=== PATIENT | female | born 1995 | race Caucasian/White ===

== ENCOUNTER 2020-12-02 20:21 | Inpatient (IN) | payer SELFPAY ==
[2020-12-02] MEDS ORDERED: Lidocaine 1% 30 ML SDV INJECT PRN (21:36)
[2020-12-02] MEDS ORDERED: Carboprost Tromethamine 250 MCG/1 ML Amp IM PRN (21:36)
[2020-12-02] MEDS ORDERED: Lactated Ringers 1,000 ML IV ONE ×2 (21:36→22:30)
[2020-12-02] MEDS ORDERED: Ondansetron 4 MG/2 ML SDV IVPUSH PRN (21:36)
[2020-12-02] MEDS ORDERED: Sodium Chloride 0.9% 10 ML Syringe FLUSH PRN (21:36)
[2020-12-02] MEDS ORDERED: Tranexamic Acid 1,000 MG in Sodium Chloride 0.9% 100 ML IV PRN (21:36)
[2020-12-02] MEDS ORDERED: Misoprostol 400 MCG (4 X 100 MCG TAB) RECTAL PRN (21:36)
[2020-12-02] MEDS ORDERED: Methylergonovine 0.2 MG/1 ML Amp IM PRN (21:36)
[2020-12-02] MEDS ORDERED: Acetaminophen 325 MG Tab PO PRN (21:36)
[2020-12-02] MEDS ORDERED: Nalbuphine 10 MG/1 ML Vial IV PRN (21:39)
[2020-12-02] MEDS ORDERED: Nalbuphine 10 MG/1 ML Vial IM PRN (21:40)
[2020-12-02] MEDS ORDERED: Oxytocin/Normal Saline 30 UNIT/500 ML BAG IV SCH (21:45)
--- NOTE | 2020-12-02 21:55 | PCM.LDHP ---
L&D History of Present Illness - General Date of Service: 12/02/20 Admit Problem/Dx: Patient Status Order with Admit Dx/Problem 12/02/20 21:36 Patient Status [ADT] Routine Admission Diagnosis/Problem Admission Diagnosis/Problem care in third trimester Source of Information: Patient History Limitations: Reports: No Limitations - History of Present Illness Introduction:: Danielle Harris is a 25 year old female who presents for evaluation for contractions that began this AM. Patient reports contractions around 10AM. Clara morton was seen by her OB provider at 1615 at which time she was 1cm and high on cervical exam. Patient reports contractions became more frequent around 1800 and pain worsened around 1945. She describes contractions every 2-3 minutes with pain worse in the back. She denies leakage of fluid or vaginal bleeding. She is still perceiving movement, though she reports it is currently less than she normally perceives. Location, : Reports: Lower back Quality: Reports: Pressure Severity: Moderate Worsens with: Reports: None Associated Symptoms: Denies: vaginal bleeding, vaginal clots, vaginal fluid H&P Review of Systems - Review of Systems: Review Of Systems: Comprehensive ROS is negative, except as noted in HPI. General: Reports: No Symptoms HEENT: Reports: No Symptoms Pulmonary: Reports: No Symptoms Cardiovascular: Reports: No Symptoms Gastrointestinal: Reports: No Symptoms Genitourinary: Reports: No Symptoms Musculoskeletal: Reports: No Symptoms Skin: Reports: No Symptoms Psychiatric: Reports: No Symptoms Neurological: Reports: No Symptoms Hematologic/Lymphatic: Reports: No Symptoms Immunologic: Reports: No Symptoms L&D Exam - Exam Exam: See Below (Alert and oriented, cooperative, occasionally has to pause conversation for contractions) - Vital Signs Vital Signs: Last Vital Signs Temp 99.6 F 12/02/20 20:35 Pulse 62 12/02/20 20:35 Resp 16 12/02/20 20:35 BP 135/85 12/02/20 20:35 Pulse Ox - OB Specific Contraction Intensity: Mild to Moderate Movement: Active Heart Tones: Present Heart Rate (FHR) Variability: Moderate (6-25 bpm) - Patterson Score Patterson Score Cervix Position: Midposition Patterson Score Consistency: Medium Patterson Score Effacement: >80% Patterson Score Dilation: 3-4 cm Patterson Score Infant's Station: -2 Patterson Score Total: 8 - Exam General: Alert, Oriented, Cooperative HEENT: Conjunctiva Clear, EOMI, Mucosa Moist & [place] Neck: Supple, Trachea Midline Lungs: Clear to Auscultation, Normal Respiratory Effort Cardiovascular: Regular Rate, Regular Rhythm, Normal S1, Normal S2 GI/Abdominal Exam: Normal Bowel Sounds, Soft, Non-Tender Rectal Exam: Normal Exam, Normal Rectal Tone Genitourinary: Normal external exam, Normal bimanual exam, Normal speculum exam Back Exam: Normal Inspection (see above), Full Range of Motion Extremities: Normal Inspection, Normal Range of Motion Skin: Warm, Dry, Intact Neurological: Cranial Nerves Intact, Reflexes Equal Bilateral Psychiatric: Alert, Normal Affect, Normal Mood - Patient Data Result Diagrams: 12/02/20 21:20 - Problem List (1) Active labor at term SNOMED Code(s): 02670599 ICD Code: [id number] - Status: Acute Current Visit: Yes Onset Date: ~12/02/20 Problem Details: -GBS negative status; antibiotics not indicated -Pain control with: nalbuphine, intrathecal if desired, IV medications, nitrous oxide -Oxytocin when indicated -AROM when able -Expect vaginal delivery (2) Anemia affecting , antepartum SNOMED Code(s): 462797192 ICD Code: O99.019 - ANEMIA COMPLICATING , UNSPECIFIED TRIMESTER Status: Acute Current Visit: Yes Problem Details: On oral ferrous sulfate supplementation. Problem List Initiated/Reviewed/Updated: Yes Orders Last 24hrs: Active Orders 24 hr Category Date Time Status Patient Status [ADT] Routine ADT 12/02/20 21:36 Ordered Communication Order [RC] ASDIRECTED Care 12/02/20 21:36 Ordered Heart Tones [RC] PER UNIT ROUTINE Care 12/02/20 21:36 Ordered Nitrous Oxide Delivery [RC] ASDIRECTED Care 12/02/20 21:40 Ordered Notify Provider Vital Signs OB [RC] ASDIRECTED Care 12/02/20 21:36 Ordered Notify Provider [RC] PRN Care 12/02/20 21:36 Ordered OB Check [OM.PC] Click to Edit Care 12/02/20 20:27 Ordered OB Discontinue Nitrous Oxide [RC] ASDIRECTED Care 12/02/20 21:40 Ordered Pump Management, Intrathecal [RC] ASDIRECTED Care 12/02/20 21:36 Ordered Up ad Karen [RC] ASDIRECTED Care 12/02/20 21:36 Ordered Vital Signs [RC] PER UNIT ROUTINE Care 12/02/20 21:36 Ordered Regular Diet [DIET] Diet 12/02/20 Dinner Ordered CBC W/O DIFF,HEMOGRAM [HEME] Routine Lab 12/02/20 21:36 Ordered CORONAVIRUS COVID-19 CLEMENTE [MOLEC] Stat Lab 12/02/20 21:05 Received CORONAVIRUS COVID-19 CLEMENTE [MOLEC] Stat Lab 12/02/20 21:36 Ordered Acetaminophen [TylenoL] Med 12/02/20 21:36 Ordered 650 mg PO Q4H PRN Carboprost Tromethamine [Hemabate DS] Med 12/02/20 21:36 Ordered 250 mcg IM ASDIRECTED PRN Lactated Ringers @ 125 MLS/HR(1000ml) Med 12/02/20 21:45 Ordered Lactated Ringers [Ringers, Lactated] 1,000 ml IV ASDIRECTED Lactated Ringers [Ringers, Lactated] 1,000 ml Med 12/02/20 21:36 Ordered IV BOLUS Lidocaine 1% [Xylocaine-MPF 1%] Med 12/02/20 21:36 Ordered 30 ml INJECT ASDIRECTED PRN Methylergonovine [Methergine] Med 12/02/20 21:36 Ordered 0.2 mg IM ASDIRECTED PRN Nalbuphine [Nubain] Med 12/02/20 21:40 Ordered 10 mg IM Q3H PRN Nalbuphine [Nubain] Med 12/02/20 21:39 Ordered 10 mg IV Q3H PRN Ondansetron [Zofran] Med 12/02/20 21:36 Ordered 4 mg IVPUSH Q4H PRN Oxytocin 30 Units in NS @ 2 MUNITS/MIN(500ml) Med 12/02/20 21:45 Ordered Oxytocin/Normal Saline [Pitocin in NS 30 UNIT/500 ML] 30 unit in 500 ml IV TITRATE Sodium Chloride 0.9% [Saline Flush] Med 12/02/20 21:36 Ordered 10 ml FLUSH ASDIRECTED PRN Tranexamic Acid [Cyklokapron] 1,000 mg Med 12/02/20 21:36 Ordered Sodium Chloride 0.9% [Normal Saline] 100 ml IV ONETIME miSOPROStoL [Cytotec] Med 12/02/20 21:36 Ordered 800 mcg RECTAL ASDIRECTED PRN Saline Lock Insert [OM.PC] Routine Oth 12/02/20 21:36 Ordered Resuscitation Status Routine Resus Stat 12/02/20 21:36 Ordered Medication Orders Acetaminophen (Acetaminophen 325 Mg Tab) 650 mg PO Q4H PRN PRN Reason: Pain (Mild 1-3) and fever Carboprost Tromethamine (Carboprost Tromethamine 250 Mcg/1 Ml Amp) 250 mcg IM ASDIRECTED PRN PRN Reason: HEMORRHAGE Lactated Ringer's (Ringers, Lactated) 1,000 mls @ 999 mls/hr IV BOLUS ONE Stop: 12/02/20 22:36 Lactated Ringer's (Ringers, Lactated) 1,000 mls @ 125 mls/hr IV ASDIRECTED DEYA Tranexamic Acid 1,000 mg/ (Sodium Chloride) 110 mls @ 660 mls/hr IV ONETIME PRN PRN Reason: Bleeding Oxytocin/Sodium Chloride (Pitocin In Ns 30 Unit/500 Ml) 30 unit in 500 mls @ 2 mls/hr IV TITRATE DEYA; Protocol Lidocaine HCl (Lidocaine 1% 30 Ml Sdv) 30 ml INJECT ASDIRECTED PRN PRN Reason: Perineal Repair Methylergonovine Maleate (Methylergonovine 0.2 Mg/1 Ml Amp) 0.2 mg IM ASDIRECTED PRN PRN Reason: Hemorrhage Misoprostol (Misoprostol 400 Mcg (4 X 100 Mcg Tab)) 800 mcg RECTAL ASDIRECTED PRN PRN Reason: Hemorrhage Nalbuphine HCl (Nalbuphine 10 Mg/1 Ml Vial) 10 mg IV Q3H PRN PRN Reason: Pain Nalbuphine HCl (Nalbuphine 10 Mg/1 Ml Vial) 10 mg IM Q3H PRN PRN Reason: Pain Ondansetron HCl (Ondansetron 4 Mg/2 Ml Sdv) 4 mg IVPUSH Q4H PRN PRN Reason: Nausea/Vomiting Sodium Chloride (Sodium Chloride 0.9% 10 Ml Syringe) 10 ml FLUSH ASDIRECTED PRN PRN Reason: Keep Vein Open
[2020-12-02] MEDS: Lactated Ringers 1,000 ML IV SCH (23:10)
[2020-12-02] MEDS ORDERED: Sodium Bicarbonate 4.2% 2.5 MEQ/5 ML SDV ONE (23:44)
[2020-12-02] MEDS ORDERED: EPINEPHrine 1 MG/ML SDV ONE (23:44)
[2020-12-02] MEDS ORDERED: fentaNYL 100 MCG/2 ML SDV ONE (23:44)
--- NOTE | 2020-12-03 00:09 | PCM.SN.2 ---
- Free Text/Narrative Note: Intrathecal. Sitting position, sterile prep and drape. 1% lidocaine w bicarb for skinwheal to L2 L3 interspace, introducer, 24 ga Pencan x 1. Pos CSF neg heme, neg parasthesia. 0.1 ml 1:1000 pf Epi, 20 mcg pf Sufenta, 30 mcg pf Fentanyl, 0.4 ml pf NS and 6 mg of 0.75% pf Marcaine injected after CSF aspiration. Pt to L lateral position. Procedure time 2340 to 0015 Time Documentation
[2020-12-03] MEDS: Lactated Ringers 1,000 ML IV SCH ×2 (00:10→04:15)
[2020-12-03] MEDS ORDERED: Oxytocin/Normal Saline 30 UNIT/500 ML BAG IV SCH (00:45)
[2020-12-03] MEDS ORDERED: EPINEPHrine 1 MG/ML SDV ONE (03:48)
[2020-12-03] MEDS ORDERED: Sodium Bicarbonate 4.2% 2.5 MEQ/5 ML SDV ONE (03:48)
[2020-12-03] MEDS ORDERED: fentaNYL 100 MCG/2 ML SDV ONE (03:48)
--- NOTE | 2020-12-03 04:08 | PCM.SN.2 ---
- Free Text/Narrative Note: Intrathecal. Sitting position, sterile prep and drape. 1% lidocaine w bicarb for skinwheal to L2 L3 interspace, introducer, 24 ga Pencan x 1. Pos CSF neg heme, neg parasthesia. 0.1 ml 1:1000 pf Epi, 20 mcg pf Sufenta, 30 mcg pf Fentanyl, 0.4 ml pf NS and 6 mg of 0.75% pf Marcaine injected after CSF aspiration. Pt to L lateral position. Procedure time 0350 to 0420 Time Documentation
[2020-12-03] MEDS ORDERED: Ibuprofen 800 MG Tab PO PRN (13:45)
[2020-12-03] MEDS ORDERED: Acetaminophen 325 MG Tab PO PRN (15:46)
[2020-12-03] MEDS ORDERED: Tranexamic Acid 1,000 MG in Sodium Chloride 0.9% 100 ML IV PRN (15:46)
[2020-12-03] MEDS ORDERED: Oxytocin 10 Units/1 ML SDV IM PRN (15:46)
[2020-12-03] MEDS ORDERED: Simethicone 80 MG Tab.Chew PO PRN (15:46)
[2020-12-03] MEDS ORDERED: Benzocaine/Menthol 20%-0.5% Spray 78 GM Cannister TOP PRN (15:46)
[2020-12-03] MEDS ORDERED: Sodium Chloride 0.9% 10 ML Syringe FLUSH PRN (15:46)
[2020-12-03] MEDS ORDERED: Carboprost Tromethamine 250 MCG/1 ML Amp IM PRN (15:46)
[2020-12-03] MEDS ORDERED: Misoprostol 400 MCG (4 X 100 MCG TAB) RECTAL PRN (15:46)
[2020-12-03] MEDS ORDERED: diphenhydrAMINE 25 MG Tab PO PRN (16:13)
[2020-12-03] MEDS: Docusate Sodium 100 MG Cap PO PRN (22:11)
[2020-12-03] MEDS: Ibuprofen 800 MG Tab PO PRN (22:12)
[2020-12-04] MEDS: Ibuprofen 800 MG Tab PO PRN ×2 (06:23→16:13)
[2020-12-04] MEDS: Docusate Sodium 100 MG Cap PO PRN (09:42)
--- NOTE | 2020-12-04 11:04 | PCM.PNPP ---
- General Info Date of Service: 12/04/20 Admission Dx/Problem (Free Text): Status Post Vacuum assisted Vaginal Delivery with repaired 2nd degree perineal lac and episiotomy. Subjective Update: Danielle reports no acute overnight events. Pain well controlled. Functional Status: Reports: Tolerating Diet, Ambulating, Urinating - Review of Systems General: Reports: No Symptoms HEENT: Reports: No Symptoms Pulmonary: Reports: No Symptoms Cardiovascular: Reports: No Symptoms Gastrointestinal: Reports: No Symptoms Genitourinary: Reports: Pain (perineal) Musculoskeletal: Reports: No Symptoms Skin: Reports: No Symptoms Neurological: Reports: No Symptoms Psychiatric: Reports: No Symptoms - General Info Date of Service: 12/04/20 - Patient Data Vital Signs - Most Recent: Last Vital Signs Temp 97.6 F 12/04/20 08:00 Pulse 76 12/04/20 08:00 Resp 16 12/04/20 08:00 BP 129/80 12/04/20 08:00 Pulse Ox 95 12/04/20 08:00 Weight - Most Recent: 180 lb I&O - Last 24 Hours: Intake & Output 12/03/20 12/04/20 12/04/20 22:59 06:59 14:59 Intake Total 2150 700 Balance 2150 700 Med Orders - Current: Current Medications Acetaminophen (Acetaminophen 325 Mg Tab) 650 mg PO Q6H PRN PRN Reason: Pain/Fever Benzocaine/Menthol (Benzocaine/Menthol 20%-0.5% [place] 78 Gm Cannister) 0 gm TOP Q4H PRN PRN Reason: Perineal comfort measures Carboprost Tromethamine (Carboprost Tromethamine 250 Mcg/1 Ml Amp) 250 mcg IM ASDIRECTED PRN PRN Reason: Excessive vaginal bleeding Diphenhydramine HCl (Diphenhydramine 25 Mg Tab) 25 mg PO BEDTIME PRN PRN Reason: Other Last Admin: 12/03/20 22:12 Dose: 25 mg Documented by: Docusate Sodium (Docusate Sodium 100 Mg Cap) 100 mg PO BID PRN PRN Reason: Constipation Last Admin: 12/04/20 09:42 Dose: 100 mg Documented by: Tranexamic Acid 1,000 mg/ (Sodium Chloride) 110 mls @ 660 mls/hr IV ONETIME PRN PRN Reason: Bleeding Ibuprofen (Ibuprofen 800 Mg Tab) 800 mg PO Q8H PRN PRN Reason: Cramping Last Admin: 12/04/20 06:23 Dose: 800 mg Documented by: Misoprostol (Misoprostol 400 Mcg (4 X 100 Mcg Tab)) 800 mcg RECTAL ONETIME PRN PRN Reason: Hemorrhage Oxytocin (Oxytocin 10 Units/1 Ml Sdv) 10 unit IM ONETIME PRN PRN Reason: Bleeding Simethicone (Simethicone 80 Mg Tab.Chew) 80 mg PO Q4H PRN PRN Reason: Gas Sodium Chloride (Sodium Chloride 0.9% 10 Ml Syringe) 10 ml FLUSH ASDIRECTED PRN PRN Reason: Keep Vein Open Discontinued Medications Acetaminophen (Acetaminophen 325 Mg Tab) 650 mg PO Q4H PRN PRN Reason: Pain (Mild 1-3) and fever Carboprost Tromethamine (Carboprost Tromethamine 250 Mcg/1 Ml Amp) 250 mcg IM ASDIRECTED PRN PRN Reason: HEMORRHAGE Epinephrine HCl (Epinephrine 1 Mg/Ml Sdv) Confirm Administered Dose 1 mg .ROUTE .STK-MED ONE Stop: 12/02/20 23:45 Last Admin: 12/03/20 06:10 Dose: Not Given Documented by: Epinephrine HCl (Epinephrine 1 Mg/Ml Sdv) Confirm Administered Dose 1 mg .ROUTE .STK-MED ONE Stop: 12/03/20 03:49 Last Admin: 12/03/20 06:10 Dose: Not Given Documented by: Fentanyl (Fentanyl 100 Mcg/2 Ml Sdv) Confirm Administered Dose 100 mcg .ROUTE .STK-MED ONE Stop: 12/02/20 23:45 Last Admin: 12/03/20 06:10 Dose: Not Given Documented by: Fentanyl (Fentanyl 100 Mcg/2 Ml Sdv) Confirm Administered Dose 100 mcg .ROUTE .STK-MED ONE Stop: 12/03/20 03:49 Last Admin: 12/03/20 06:10 Dose: Not Given Documented by: Lactated Ringer's (Ringers, Lactated) 1,000 mls @ 999 mls/hr IV BOLUS ONE Stop: 12/02/20 22:36 Last Admin: 12/03/20 03:49 Dose: 999 mls/hr Documented by: Lactated Ringer's (Ringers, Lactated) 1,000 mls @ 125 mls/hr IV ASDIRECTED DEYA Last Admin: 12/03/20 04:15 Dose: 125 mls/hr Documented by: Tranexamic Acid 1,000 mg/ (Sodium Chloride) 110 mls @ 660 mls/hr IV ONETIME PRN PRN Reason: Bleeding Oxytocin/Sodium Chloride (Pitocin In Ns 30 Unit/500 Ml) 30 unit in 500 mls @ 2 mls/hr IV TITRATE DEYA; Protocol Lactated Ringer's (Ringers, Lactated) 1,000 mls @ 1,000 mls/hr IV ONETIME ONE Stop: 12/02/20 23:29 Last Admin: 12/03/20 06:10 Dose: Not Given Documented by: Oxytocin/Sodium Chloride (Pitocin In Ns 30 Unit/500 Ml) 30 unit in 500 mls @ 2 mls/hr IV TITRATE DEYA; Protocol Last Titration: 12/03/20 10:55 Dose: Infused Documented by: Ibuprofen (Ibuprofen 800 Mg Tab) 800 mg PO Q8H PRN PRN Reason: Cramping Last Admin: 12/03/20 14:35 Dose: 800 mg Documented by: Lidocaine HCl (Lidocaine 1% 30 Ml Sdv) 30 ml INJECT ASDIRECTED PRN PRN Reason: Perineal Repair Methylergonovine Maleate (Methylergonovine 0.2 Mg/1 Ml Amp) 0.2 mg IM ASDIRECTED PRN PRN Reason: Hemorrhage Misoprostol (Misoprostol 400 Mcg (4 X 100 Mcg Tab)) 800 mcg RECTAL ASDIRECTED PRN PRN Reason: Hemorrhage Nalbuphine HCl (Nalbuphine 10 Mg/1 Ml Vial) 10 mg IV Q3H PRN PRN Reason: Pain Nalbuphine HCl (Nalbuphine 10 Mg/1 Ml Vial) 10 mg IM Q3H PRN PRN Reason: Pain Last Admin: 12/02/20 23:05 Dose: 10 mg Documented by: Ondansetron HCl (Ondansetron 4 Mg/2 Ml Sdv) 4 mg IVPUSH Q4H PRN PRN Reason: Nausea/Vomiting Last Admin: 12/02/20 23:39 Dose: 4 mg Documented by: Sodium Bicarbonate (Sodium Bicarbonate 4.2% 2.5 Meq/5 Ml Sdv) Confirm Administered Dose 2.5 meq .ROUTE .STK-MED ONE Stop: 12/02/20 23:45 Last Admin: 12/03/20 06:10 Dose: Not Given Documented by: Sodium Bicarbonate (Sodium Bicarbonate 4.2% 2.5 Meq/5 Ml Sdv) Confirm Administered Dose 2.5 meq .ROUTE .STK-MED ONE Stop: 12/03/20 03:49 Last Admin: 12/03/20 06:10 Dose: Not Given Documented by: Sodium Chloride (Sodium Chloride 0.9% 10 Ml Syringe) 10 ml FLUSH ASDIRECTED PRN PRN Reason: Keep Vein Open Sufentanil Citrate (Sufentanil 50 Mcg/1 Ml Amp) Confirm Administered Dose 50 mcg .ROUTE .STK-MED ONE Stop: 12/02/20 23:45 Last Admin: 12/03/20 06:10 Dose: Not Given Documented by: Sufentanil Citrate (Sufentanil 50 Mcg/1 Ml Amp) Confirm Administered Dose 50 mcg .ROUTE .STK-MED ONE Stop: 12/03/20 03:49 Last Admin: 12/03/20 06:10 Dose: Not Given Documented by: - Interaction Infant Disposition, : [place] in Room with Family Infant Interaction: Holding Infant Feeding: Breastfed ; Nursed Well, Difficulty with Latch-on (Flat nipples, using nipple shield. Supplementing with formula via tube.) Support Person: - Recovery Exam Fundal Tone: Firm Fundal Level: 2 Fingerbreadths Below Umbilicus Fundal Placement: Midline Lochia Amount: Small Lochia Color: Rubra/Red Perineum Description: Edematous Other Perinuem Description: improving Episiotomy/Laceration: Approximated Bladder Status: Voiding Urinary Elimination: Voided Other Urinary Elimination, : 400mls - Exam General: Alert, Oriented HEENT: Pupils Equal Neck: Supple Lungs: Clear to Auscultation, Normal Respiratory Effort Cardiovascular: Regular Rate, Regular Rhythm GI/Abdominal Exam: Normal Bowel Sounds, Soft, Non-Tender, No Organomegaly, No Distention, No Abnormal Bruit, No Mass, Pelvis Stable Extremities: Normal Inspection, Normal Range of Motion, Non-Tender, No Pedal Edema, Normal Capillary Refill Skin: Warm, Dry, Intact Wound/Incisions: Healing Well Neurological: No New Focal Deficit Psy/Mental Status: Alert, Normal Affect, Normal Mood - Problem List & Annotations (1) Vacuum-assisted vaginal delivery SNOMED Code(s): 30354748194633849 Code(s): Z37.9 - OUTCOME OF DELIVERY, UNSPECIFIED Status: Acute Current Visit: Yes (2) Second-degree perineal laceration, SNOMED Code(s): 571941707 Code(s): O70.1 - SECOND DEGREE PERINEAL LACERATION DURING DELIVERY Status: Acute Current Visit: Yes Annotation/Comment:: repaired with 3-0 vicryl. hemostasis confirmed. - Problem List Review Problem List Initiated/Reviewed/Updated: Yes - My Orders Last 24 Hours: My Active Orders 12/03/20 15:46 Up ad Karen [RC] ASDIRECTED Acetaminophen [TylenoL] 650 mg PO Q6H PRN Benzocaine/Menthol [Dermoplast Pain Relief 20%-0.5% [place]] See Dose Instructions TOP Q4H PRN Carboprost Tromethamine [Hemabate DS] 250 mcg IM ASDIRECTED PRN Docusate Sodium [Colace] 100 mg PO BID PRN Ibuprofen [Motrin] 800 mg PO Q8H PRN Oxytocin [Pitocin] 10 unit IM ONETIME PRN Simethicone 80 mg PO Q4H PRN Sodium Chloride 0.9% [Saline Flush] 10 ml FLUSH ASDIRECTED PRN Tranexamic Acid [Cyklokapron] 1,000 mg Sodium Chloride 0.9% [Normal Saline] 100 ml IV ONETIME miSOPROStoL [Cytotec] 800 mcg RECTAL ONETIME PRN Assess Lochia [WOMSER] Per Unit Routine Assess Uterine Involution [WOMSER] Per Unit Routine Breast Pump [WOMSER] Per Unit Routine Ice Therapy [OM.PC] Per Unit Routine Perineal Care [OM.PC] Per Unit Routine Saline Lock Insert [OM.PC] Urgent Sitz Bath [OM.PC] Per Unit Routine Resuscitation Status Routine 12/03/20 15:47 Patient Status [ADT] Routine Notify Provider Vital Signs OB [RC] ASDIRECTED 12/03/20 15:49 Vital Signs [RC] 12/03/20 16:13 diphenhydrAMINE [Benadryl] 25 mg PO BEDTIME PRN 12/03/20 Dinner Regular Diet [DIET] - Assessment Assessment:: 1. s/p vacuum assisted vaginal delivery 2. 2nd degree perineal laceration, repaired - Plan Plan:: Continue routine cares. Aline provided for perineal edema.
--- NOTE | 2020-12-05 09:20 | PCM.DCSUM1 ---
Discharge Summary - Hospital Course HPI Initial Comments: Danielle Harris is a 25yo G1 now P1 who was admitted to L&D on 12/02/2020 at Gestational age 39 weeks 1/7days for the successful labor & vacuum assisted vaginal delivery of a vigorous male at 0753 on 12/03/2020. Danielle's excellent care was supervised by Dr. Purvis. was only complicated by generalized anxiety and mild anemia - for which she took Zoloft 25mg and an additional Iron & Vitamin C supplement in conjunction with a daily vitamin. Delivery was complicated by presentation in OP position, 2nd degree perineal laceration, and episiotomy. EBL of ~300 CCs. Danielle is using a nipple shield and supplements with formula via feeding tube at the breast. Wing Mejía had scores of 7 and 9. Due to Left congenital inguinal hernia the 's circumcision will be performed after evaluation of hernia by pediatric general surgeon. Brief History: labs negative for infectious diseases including GBS, Gonorrhea, Chlamydia, Syphillis, Hep C, HIV. Hep B nonimmune. Rubella immune. Hgb on admission 13.0, plt 241 - Discharge Data Discharge Date: 12/05/20 Discharge Disposition: Home, Self-Care 01 Condition: Good - Referral to Home Health Primary Care Physician: Shahla Purvis MD - Discharge Diagnosis/Problem(s) (1) Vacuum-assisted vaginal delivery SNOMED Code(s): 48330521602587442 ICD Code: Z37.9 - OUTCOME OF DELIVERY, UNSPECIFIED Status: Acute Current Visit: Yes (2) Second-degree perineal laceration, SNOMED Code(s): 960229176 ICD Code: O70.1 - SECOND DEGREE PERINEAL LACERATION DURING DELIVERY Status: Acute Current Visit: Yes Problem Details: repaired with 3-0 vicryl. hemostasis confirmed. - Patient Instructions Diet: Regular Diet as Tolerated Activity: As Tolerated Notify Provider of: Fever, Increased Pain, Nausea and/or Vomiting - Discharge Plan *PRESCRIPTION DRUG MONITORING PROGRAM REVIEWED*: Not Applicable *COPY OF PRESCRIPTION DRUG MONITORING REPORT IN PATIENT BETTY: Not Applicable Home Medications: Home Meds Pnv No.95/Ferrous Fum/Folic AC [ Tablet] 1 tab PO DAILY 12/03/20 [History] Patient Handouts: Baby Blues, Episiotomy, Care After, Care After Vaginal Delivery - Discharge Summary/Plan Comment DC Time >30 min.: No Total # of Minutes for Discharge Time: 25 - General Info Date of Service: 12/05/20 Admission Dx/Problem (Free Text: Status Post Vacuum assisted Vaginal Delivery with repaired 2nd degree perineal lac and episiotomy. Subjective Update: Danielle reports no acute overnight events. Pain well controlled. Urinating, passing flatus & has had a bowel movement. Endorses mild sinus congestion, rhinorrhea, and headache that improve with tylenol. No fevers, chills, SOB, CP, vision changes. - Review of Systems Systems Review Comment: Comprehensive ROS negative except as noted above. - Patient Data Vitals - Most Recent: Last Vital Signs Temp 98.3 F 12/05/20 08:00 Pulse 86 12/05/20 08:00 Resp 18 12/05/20 08:00 BP 124/68 12/05/20 08:00 Pulse Ox 95 12/04/20 08:00 Weight - Most Recent: 180 lb Med Orders - Current: Current Medications Acetaminophen (Acetaminophen 325 Mg Tab) 650 mg PO Q6H PRN PRN Reason: Pain/Fever Benzocaine/Menthol (Benzocaine/Menthol 20%-0.5% [place] 78 Gm Cannister) 0 gm TOP Q4H PRN PRN Reason: Perineal comfort measures Carboprost Tromethamine (Carboprost Tromethamine 250 Mcg/1 Ml Amp) 250 mcg IM ASDIRECTED PRN PRN Reason: Excessive vaginal bleeding Diphenhydramine HCl (Diphenhydramine 25 Mg Tab) 25 mg PO BEDTIME PRN PRN Reason: Other Last Admin: 12/03/20 22:12 Dose: 25 mg Documented by: Docusate Sodium (Docusate Sodium 100 Mg Cap) 100 mg PO BID PRN PRN Reason: Constipation Last Admin: 12/04/20 09:42 Dose: 100 mg Documented by: Tranexamic Acid 1,000 mg/ (Sodium Chloride) 110 mls @ 660 mls/hr IV ONETIME PRN PRN Reason: Bleeding Ibuprofen (Ibuprofen 800 Mg Tab) 800 mg PO Q8H PRN PRN Reason: Cramping Last Admin: 12/04/20 16:13 Dose: 800 mg Documented by: Misoprostol (Misoprostol 400 Mcg (4 X 100 Mcg Tab)) 800 mcg RECTAL ONETIME PRN PRN Reason: Hemorrhage Oxytocin (Oxytocin 10 Units/1 Ml Sdv) 10 unit IM ONETIME PRN PRN Reason: Bleeding Simethicone (Simethicone 80 Mg Tab.Chew) 80 mg PO Q4H PRN PRN Reason: Gas Sodium Chloride (Sodium Chloride 0.9% 10 Ml Syringe) 10 ml FLUSH ASDIRECTED PRN PRN Reason: Keep Vein Open Discontinued Medications Acetaminophen (Acetaminophen 325 Mg Tab) 650 mg PO Q4H PRN PRN Reason: Pain (Mild 1-3) and fever Carboprost Tromethamine (Carboprost Tromethamine 250 Mcg/1 Ml Amp) 250 mcg IM ASDIRECTED PRN PRN Reason: HEMORRHAGE Epinephrine HCl (Epinephrine 1 Mg/Ml Sdv) Confirm Administered Dose 1 mg .ROUTE .STK-MED ONE Stop: 12/02/20 23:45 Last Admin: 12/03/20 06:10 Dose: Not Given Documented by: Epinephrine HCl (Epinephrine 1 Mg/Ml Sdv) Confirm Administered Dose 1 mg .ROUTE .STK-MED ONE Stop: 12/03/20 03:49 Last Admin: 12/03/20 06:10 Dose: Not Given Documented by: Fentanyl (Fentanyl 100 Mcg/2 Ml Sdv) Confirm Administered Dose 100 mcg .ROUTE .STK-MED ONE Stop: 12/02/20 23:45 Last Admin: 12/03/20 06:10 Dose: Not Given Documented by: Fentanyl (Fentanyl 100 Mcg/2 Ml Sdv) Confirm Administered Dose 100 mcg .ROUTE .STK-MED ONE Stop: 12/03/20 03:49 Last Admin: 12/03/20 06:10 Dose: Not Given Documented by: Lactated Ringer's (Ringers, Lactated) 1,000 mls @ 999 mls/hr IV BOLUS ONE Stop: 12/02/20 22:36 Last Admin: 12/03/20 03:49 Dose: 999 mls/hr Documented by: Lactated Ringer's (Ringers, Lactated) 1,000 mls @ 125 mls/hr IV ASDIRECTED DEYA Last Admin: 12/03/20 04:15 Dose: 125 mls/hr Documented by: Tranexamic Acid 1,000 mg/ (Sodium Chloride) 110 mls @ 660 mls/hr IV ONETIME PRN PRN Reason: Bleeding Oxytocin/Sodium Chloride (Pitocin In Ns 30 Unit/500 Ml) 30 unit in 500 mls @ 2 mls/hr IV TITRATE DEYA; Protocol Lactated Ringer's (Ringers, Lactated) 1,000 mls @ 1,000 mls/hr IV ONETIME ONE Stop: 12/02/20 23:29 Last Admin: 12/03/20 06:10 Dose: Not Given Documented by: Oxytocin/Sodium Chloride (Pitocin In Ns 30 Unit/500 Ml) 30 unit in 500 mls @ 2 mls/hr IV TITRATE DEYA; Protocol Last Titration: 12/03/20 10:55 Dose: Infused Documented by: Ibuprofen (Ibuprofen 800 Mg Tab) 800 mg PO Q8H PRN PRN Reason: Cramping Last Admin: 12/03/20 14:35 Dose: 800 mg Documented by: Lidocaine HCl (Lidocaine 1% 30 Ml Sdv) 30 ml INJECT ASDIRECTED PRN PRN Reason: Perineal Repair Methylergonovine Maleate (Methylergonovine 0.2 Mg/1 Ml Amp) 0.2 mg IM ASDIRECTED PRN PRN Reason: Hemorrhage Misoprostol (Misoprostol 400 Mcg (4 X 100 Mcg Tab)) 800 mcg RECTAL ASDIRECTED PRN PRN Reason: Hemorrhage Nalbuphine HCl (Nalbuphine 10 Mg/1 Ml Vial) 10 mg IV Q3H PRN PRN Reason: Pain Nalbuphine HCl (Nalbuphine 10 Mg/1 Ml Vial) 10 mg IM Q3H PRN PRN Reason: Pain Last Admin: 12/02/20 23:05 Dose: 10 mg Documented by: Ondansetron HCl (Ondansetron 4 Mg/2 Ml Sdv) 4 mg IVPUSH Q4H PRN PRN Reason: Nausea/Vomiting Last Admin: 12/02/20 23:39 Dose: 4 mg Documented by: Sodium Bicarbonate (Sodium Bicarbonate 4.2% 2.5 Meq/5 Ml Sdv) Confirm Administered Dose 2.5 meq .ROUTE .STK-MED ONE Stop: 12/02/20 23:45 Last Admin: 12/03/20 06:10 Dose: Not Given Documented by: Sodium Bicarbonate (Sodium Bicarbonate 4.2% 2.5 Meq/5 Ml Sdv) Confirm Administered Dose 2.5 meq .ROUTE .STK-MED ONE Stop: 12/03/20 03:49 Last Admin: 12/03/20 06:10 Dose: Not Given Documented by: Sodium Chloride (Sodium Chloride 0.9% 10 Ml Syringe) 10 ml FLUSH ASDIRECTED PRN PRN Reason: Keep Vein Open Sufentanil Citrate (Sufentanil 50 Mcg/1 Ml Amp) Confirm Administered Dose 50 mcg .ROUTE .STK-MED ONE Stop: 12/02/20 23:45 Last Admin: 12/03/20 06:10 Dose: Not Given Documented by: Sufentanil Citrate (Sufentanil 50 Mcg/1 Ml Amp) Confirm Administered Dose 50 mcg .ROUTE .[place].ru-MED ONE Stop: 12/03/20 03:49 Last Admin: 12/03/20 06:10 Dose: Not Given Documented by: - Exam General: Reports: Alert, Oriented HEENT: Reports: Pupils Equal, Pupils Reactive, EOMI, Mucous Membr. Moist/[place] Neck: Reports: Supple Lungs: Reports: Clear to Auscultation, Normal Respiratory Effort Cardiovascular: Reports: Regular Rate, Regular Rhythm GI/Abdominal Exam: Normal Bowel Sounds, Soft, Non-Tender, No Organomegaly, No Distention, No Abnormal Bruit, No Mass, Pelvis Stable (Female) Exam: Fundal Height (3 fingerwidths below umbillicus & firm), Vaginal Bleeding, Vaginal Tears Rectal (Female) Exam: Deferred Back Exam: Reports: Normal Inspection, Full Range of Motion Extremities: Normal Inspection, Normal Range of Motion, Non-Tender, No Pedal Edema, Normal Capillary Refill Skin: Reports: Warm, Dry, Intact Wound/Incisions: Reports: Healing Well Neurological: Reports: No New Focal Deficit Psy/Mental Status: Reports: Alert, Normal Affect, Normal Mood Discharge Operative/Procedures - Procedures Performed Operations: Vacuum-assisted vaginal delivery Operations/Procedure Comment: Normal Labor, pitocin augmentation, intrathecal analgesia provided, fetus presented in OP, 2nd degree perineal laceration and episiotomy repaired.
[2020-12-05] MEDS ORDERED: EPINEPHrine 1 MG/ML SDV ONE (13:59)
[2020-12-05] MEDS ORDERED: Sodium Bicarbonate 4.2% 2.5 MEQ/5 ML SDV ONE (13:59)
[2020-12-05] MEDS ORDERED: fentaNYL 100 MCG/2 ML SDV ITHECAL ONE (13:59)
[2020-12-05] MEDS ORDERED: Sodium Chloride 0.9% 20 ML SDV ONE (13:59)
== END 2020-12-05 15:30 | disposition home or self-care (01) | DRG 807 ==
LOC: DL.OBCHECK 20:21 → DL.OB 21:36
PROVIDERS: ADMIT Family Medicine; ATTEND Family Medicine
PROC: 10D07Z6 Extraction of Products of Conception, Vacuum, Via Natural or Artificial Opening (ICD-10-PCS; principal; 2020-12-02)
PROC: 0KQM0ZZ Repair Perineum Muscle, Open Approach (ICD-10-PCS; 2020-12-02)
PROC: 0W8NXZZ Division of Female Perineum, External Approach (ICD-10-PCS; 2020-12-02)
DX: O64.0XX0 Obstructed labor due to incomplete rotation of fetal head, not applicable or unspecified (principal); Z37.0 Single live birth; Z3A.39 39 weeks gestation of pregnancy; O99.02 Anemia complicating childbirth; D64.9 Anemia, unspecified; O70.1 Second degree perineal laceration during delivery; Z20.822 Contact with and (suspected) exposure to COVID-19
CPT/HCPCS: 01967; 36415; 51701; 59409; 85027; A9270-GY; J0171; J2300; J2405; J2590; J3010; J7120; U0002